=== PATIENT | female | born 1965 | race Caucasian/White ===

== ENCOUNTER 2023-06-23 19:50 | Outpatient (CLI) | payer BC ==
--- NOTE | 2023-06-30 01:32 | SLS ---
SLEEP STUDY This is a CPAP titration report. HISTORY OF PRESENT ILLNESS: This is a 57-year-old female patient, who has been diagnosed having severe obstructive sleep apnea with an AHI of 78.2, and the patient is coming in to undergo a CPAP titration for severe symptomatic obstructive sleep apnea. Height is 5 feet 2 inches, weight is 222, and BMI of 40.6. TECHNICAL DESCRIPTION: The sleep evaluation of the patient consisted of clinical polysomnography, nocturnal respiratory battery, left and right anterior tibialis surface electromyography. The standard montage for the clinical polysomnography included the EEG, EOG, EMG, and EKG. Respiratory battery included measurements of nasal/buccal airflow, thoracic, and/or abdominal effort and intercostal surface EMG. Nocturnal oxyhemoglobin saturations were obtained by finger oximetry. Digital video and audio monitoring were done throughout the entire night to check or parasomnias. Step-de la rosa titration with positive airway pressure was utilized during the study to control the respiratory events. SLEEP ARCHITECTURE: Total time in bed was 377 minutes, total sleep time 246 minutes, and the sleep efficiency was 68.9%. Latency to sleep onset was 8 minutes. Latency to REM sleep was 22 minutes. The sleep architecture was characterized by 8.3% stage I, 76.2% stage II, 0% stage III, and 16.9% REM sleep. The wake after sleep onset time was 105 minutes. SLEEP CONTINUITY SUMMARY: The patient had a total of 31 arousals with an index of 7.6. The respiratory arousal index was 0.5. RESPIRATORY SUMMARY: The patient was started on CPAP therapy initially at a pressure of 5 cm of water and the pressure was gradually increased by increments of 1 cm to reach a maximum CPAP pressure of 11 cm of water. During the course of titration, oxygen was ordered as the patient continued to have nocturnal oxygen desaturation and the permit was to eliminate those oxygen desaturations. I carefully reviewed the CPAP titration to take in account the sleep stage and body position. The patient was studied in various body position, essentially on her back and the patient was studied in REM and non-REM sleep. In summary, this was a successful titration. There was complete elimination of the obstructive respiratory events at various CPAP pressures and the treatment became more effective once oxygen was added to eliminate nocturnal oxygen desaturations. Oxygen was added at 2 L. Based on my review, a CPAP pressure of 9 cm water will be appropriate in treating this patient's obstructive sleep apnea along with O2 at 2 L. CARDIAC SUMMARY: The average heart rate was 78, minimum heart rate was 73, maximum heart rate was 84 and the rhythm was sinus. PERIODIC LIMB MOVEMENT ACTIVITY: No significant periodic limb movement activity was noted. ASSESSMENT: 1. Severe symptomatic RACHEL with an AHI of 78, treated with severe nocturnal oxygen saturations. Here, the patient underwent successful CPAP titration. 2. Morbid obesity BMI of 40. 3. Chronic hypersomnia with Bajadero score of 15. 4. Hypertension. 5. Hypothyroidism. 6. Chronic back pain. PLAN: We will initiate CPAP therapy at a pressure of 9 cm of water. The patient will also be given oxygen at 2 L flow to be added along with CPAP therapy to eliminate oxygen desaturations. Note that the patient was able to eliminate obstructive respiratory event. At the same time, she continues to have desaturations, which were eliminated with oxygen supplementation. At the same time, the patient will be given AirFit P10 small size nasal pillows. We will encourage weight loss. Optimize sleep hygiene measures. Initiate CPAP therapy and see her back in the office in 30 to 90 days to assess clinical response and compliancy. Prescriptions will be sent to [facility]. MMODL / IJN: [id number] /
== END 2023-06-24 06:45 | disposition home or self-care (01) ==
LOC: 3 N SLEEP 19:50
PROVIDERS: ATTEND Internal Medicine Critical Care Medicine
DX: G47.33 Obstructive sleep apnea (adult) (pediatric) (principal); E66.01 Morbid (severe) obesity due to excess calories; G47.10 Hypersomnia, unspecified; I10 Essential (primary) hypertension; G47.36 Sleep related hypoventilation in conditions classified elsewhere; E03.9 Hypothyroidism, unspecified; G89.29 Other chronic pain; G47.20 Circadian rhythm sleep disorder, unspecified type; G47.52 REM sleep behavior disorder; Z68.41 Body mass index [BMI] 40.0-44.9, adult
CPT/HCPCS: 95811